=== PATIENT | female | born 1955 | race Caucasian/White ===

== ENCOUNTER 2020-12-10 16:54 | Emergency (ER) | payer OTHER ==
[~2020-12-10] VITALS: Ht 162.6 cm; Wt 104.5 kg
--- NOTE | 2020-12-10 17:21 | RAD ---
EXAM: Chest, single view. HISTORY: Chest pain. COMPARISON: None. FINDINGS: A frontal view of the chest is obtained. There is no infiltrate, pleural effusion or pneumo thorax. There is suspected infrahilar atelectasis. There is a prominent cardiac silhouette, likely ac centuated due to portable technique. There are median sternotomy changes and evidence of prior cardia c valve surgery. IMPRESSION: No acute pulmonary finding. Electronically signed by: Jaimie Egan MD (12/10/2020 5:19 PM) [id number]
[2020-12-10 17:27] LABS: BASO # 0.1 x10^3/uL (0.0-0.2); BASO % 1 % (0-3); EOS # 0.2 x10^3/uL (0.0-0.7); EOS % 2 % (0-3); HEMOGLOBIN 9.5 g/dL (12.0-15.5); LYMPH # 3.1 x10^3/uL (1.0-4.8); LYMPH % 30 % (24-48); MEAN CORPUSCULAR HEMOGLOBIN 32 pg (25-35); MEAN CORPUSCULAR HGB CONC 34 g/dL (31-37); MEAN CORPUSCULAR VOLUME 95 fL (79-100); MONO # 0.4 x10^3/uL (0.0-1.1); MONO % 4 % (0-9); NEUT # 6.7 x10^3/uL (1.8-7.7); NEUT % 65 % (31-73); PLATELET COUNT 181 x10^3/uL (140-400); RED BLOOD COUNT 2.94 x10^6/uL (3.50-5.40); RED CELL DISTRIBUTION WIDTH 14.2 % (11.5-14.5); WHITE BLOOD COUNT 10.4 x10^3/uL (4.0-11.0)
--- NOTE | 2020-12-10 17:27 | PHYS DOC ---
General Adult HPI: HPI: 65-year-old female past medical history of ASD w/emboli CVA (2 yrs ago s/o coumadin, now on pradaxa) with MV repair, HFrEF (35%, no AICD), HTN, COPD, HLD and obesity presents to the ED after patient was found down, lying on her back, by her daughter and her daughter's kitchen. Patient is here visiting family from [facility]. Patient states she ate cabbage salad and shortly thereafter had left upper quadrant abdominal pain that radiated to her right upper abdomen with associated loose watery diarrhea, denies any melena or hematochezia. Patient with no recall of what happened in the kitchen or how she landed. Also complains of neck pain in the ED. History of multiple unremarkable cardiac catheterizations. EMS with prenotification concern for anterior infarct reading on EKG machine. Patient's EKG reviewed by myself prior to ED arrival. Patient's glucose was 434 and EMS had given 250 cc of NS. Patient also reports she takes carvedilol and entresto. (JACINTA WU DO) Review of Systems: Review of Systems: Constitutional: Denies fever or chills. [] Eyes: Denies change in visual acuity. [] HENT: Denies nasal congestion or sore throat. [] Respiratory: Denies cough or shortness of breath. [] Cardiovascular: Denies chest pain or edema. [] GI: Denies nausea, vomiting, hematochezia, hematemesis : Denies dysuria or hematuria Musculoskeletal: Denies cva pain or joint pain. [] Integument: Denies rash or blistering lesions Neurologic: Denies headache, focal weakness or sensory changes. [] Endocrine: Denies polyuria or polydipsia. [] Lymphatic: Denies swollen glands. [] Psychiatric: Denies depression or anxiety. [] (JACINTA WU DO) Heart Score: C/O Chest Pain: No Risk Factors: Risk Factors: DM, Current or recent (<one month) smoker, HTN, HLP, family history of CAD, obesity. Risk Scores: Score 0 - 3: 2.5% MACE over next 6 weeks - Discharge Home Score 4 - 6: 20.3% MACE over next 6 weeks - Admit for Clinical Observation Score 7 - 10: 72.7% MACE over next 6 weeks - Early Invasive Strategies (JACINTA WU DO) C/O Chest Pain: N/A (MALATHI GARRISON DO) Physical Exam: PE: Constitutional: Pale, diaphoretic, appears uncomfortable, blood pressure difficult to obtain, manual taken by RN with BP of 60/30 HENT: Normocephalic, atraumatic, does report midline neck pain ,dry mucous membranes Eyes: PERRLA, EOMI, conjunctiva normal, no discharge. Neck: Normal range of motion, supple, Cardiovascular: S1/2 present, regular rhythm Lungs & Thorax: Speaking in full sentences, bilateral equal chest rise, no tachypnea or increased work of breathing Abdomen: soft, no rigidity or guarding but does have left upper quadrant and right upper quadrant tenderness, obese pannus, large formed BM in ed prior to CT imaging Skin: Warm, no erythema, no rash. [] Back: No midline step-offs, no CVA tenderness. [] Extremities: No tenderness, no cyanosis, no lower extremity edema, bruise over anterior patella with skin abrasion, full range of motion of left knee, no pain over left hip or left ankle, Neurologic: Alert and oriented X 3, normal motor function, normal sensory function, no focal deficits noted. [] Psychologic: Affect normal, judgement normal, mood normal. [] (JACINTA WU DO) PE: General: alert, acute distress Skin: ecchymosis diffuse varying age, abrasion left knee Head:: Normocephalic, atraumatic. Neck: Trachea midline. Eyes: EOMI, Normal conjunctiva, No drainage CARDIOVASCULAR: Regular rate and rhythm RESPIRATORY: No respiratory distress, lungs clear MUSCULOSKELETAL: Full range of motion of bilateral upper and lower extremities. GASTROINTESTINAL: Abdomen is tender to palpation LUQ NEUROLOGICAL: Alert and noted to person, place and time. No neurological deficits observed Psychiatric: Cooperative. Normal judgment (MALATHI GARRISON DO) EKG: EKG: EKG by EMS at 0247 shows sinus rhythm 81 bpm, left axis deviation, normal intervals, T wave inversion lead III, no ST elevations or ST depressions (EMS concerned for SAM II and aVF w/TWI III - I do not appreciate any convex/tombstone SAM) EKG in ED at 0457 shows sinus rhythm at 71 bpm, left axis deviation, T wave inversion lead III, normal intervals, no ST elevations or ST depressions (JACINTA WU DO) Radiology/Procedures: Radiology/Procedures: []IMAGING REPORT Signed PATIENT: KIN GREER ACCOUNT: [id number] : 1955 LOCATION: ER AGE: 65 SEX: F EXAM STATUS: PRE ER ORD. PHYSICIAN: JACINTA WU DO REASON: abd pain radiates to back PROCEDURE: PORTABLE CHEST 1V EXAM: Chest, single view. HISTORY: Chest pain. COMPARISON: None. FINDINGS: A frontal view of the chest is obtained. There is no infiltrate, pleural effusion or pneumothorax. There is suspected infrahilar atelectasis. There is a prominent cardiac silhouette, likely accentuated due to portable technique. There are median sternotomy changes and evidence of prior cardiac valve surgery. IMPRESSION: No acute pulmonary finding. Electronically signed by: Jaimie Brewer MD (12/10/2020 5:19 PM) [id number] DICTATED and SIGNED BY: JAIMIE BREWER MD DATE: 12/10/[id number] 0 IMAGING REPORT Signed PATIENT: KIN GREER ACCOUNT: [id number] : 1955 LOCATION: ER AGE: 65 SEX: F EXAM STATUS: PRE ER ORD. PHYSICIAN: JACINTA WU DO REASON: abd pain radiates to back PROCEDURE: PORTABLE CHEST 1V EXAM: Chest, single view. HISTORY: Chest pain. COMPARISON: None. FINDINGS: A frontal view of the chest is obtained. There is no infiltrate, pleural effusion or pneumothorax. There is suspected infrahilar atelectasis. There is a prominent cardiac silhouette, likely accentuated due to portable technique. There are median sternotomy changes and evidence of prior cardiac valve surgery. IMPRESSION: No acute pulmonary finding. Electronically signed by: Jaimie Brewer MD (12/10/2020 5:19 PM) [id number] DICTATED and SIGNED BY: JAIMIE BREWER MD DATE: 12/10/[id number] 0 (JACINTA WU DO) Impression: 1. No aortic dissection. 2. Large perisplenic hematoma and small volume hemoperitoneum. 3. Mild diffuse colonic wall thickening and possibly some wall thickening of small bowel in the left abdomen may be reactive or due to enteritis/colitis. 4. 2 pulmonary nodules in the right lower lobe measuring up to 3 mm. In a high risk patient, optional follow-up CT could be obtained in 12 months. 5. Other findings as described. (MALATHI GARRISON DO) Course & Med Decision Making: Course & Med Decision Making Pertinent Labs and Imaging studies reviewed. (See chart for details) Concern for abdominal, back and neck pain in the setting of hypotension and syncope. Patient started on NS 500 L bolus. Labs with renal insufficiency, no prior for baseline comparison pending CT angio of the chest/abdomen/pelvis pending to evaluate for trauma, cardiac process or aortic process including dissection or aneurysm. No obvious pericardial effusion on bedside POCUS - limited imaging 2/2 habitus and pt movement/distress. Suspect patient will require pressors. Due to shift change patient was signed out to oncoming physician Dr. Garrison for further medical management and evaluation-he is aware of critical nature of patient. Patient will likely need coags ordered (not ordered initially 2/2 nationwide shortage of blue tops that are being reserved for stroke patients). Critical Care: Authorized and Performed by: Jacinta Wu DO Total critical care time: approximately 60 minutes Due to a high probability of clinically significant, life threatening deterioration, the patient required my highest level of preparedness to intervene emergently and I personally spent this critical care time directly and personally managing the patient. This critical care time included obtaining a history; examining the patient; pulse oximetry; ventilator management if necessary; ordering and review of studies; arranging urgent treatment with development of a management plan; evaluation of patient's response to treatment; frequent reassessment; discussion with patient/family; and, discussions with other providers. This critical care time was performed to assess and manage the high probability of imminent, life-threatening deterioration that could result in multi-organ failure. It was exclusive of separately billable procedures and treating other patients and teaching time. Please see MDM section and the rest of the note for further information on patient assessment and treatment. (JACINTA WU DO) Course & Med Decision Making Assumed care at shift change-- 0600hrs Disposition pending labs and re-evaluation. Hx-- with upper abdominal discomfort x 2-3 days associated with diarrhea. FEATHERER daughter found patient laying on her back on the in the kitchen floor. Patient states she feel on to her belly and denies hitting her head. On exam patient with C/O LUQ abdominal pain. She has an abrasion over her left knee. Patients blood pressures in the 60's systolic Hb 9.5 Patient is on Pradaxa for ASD emboli --/> TIA (2001) Discussed CT abd/pel Discussed with with Radiologist 2. Large perisplenic hematoma and small volume hemoperitoneum. Massive transfusion protocal ordered--- 2 Unit PRBC, FFP Pradaxa Reversal ordered. - Received CT head/C-spine - negative Chest Xray - negative Knee Xray - negative Patient to be transferred Emergently to Trauma Center --- [facility] Accepted Dr Ethan Rangel Critical Care Time -- 35 minutes (MALATHI GARRISON DO) Ranjan Disclaimer: Ranjan Disclaimer: This electronic medical record was generated, in whole or in part, using a voice recognition dictation system. (JACINTA WU DO) Departure Departure Impression: Primary Impression: Syncope and collapse Additional Impressions: Abdominal pain Neck pain Back pain Diarrhea Spleen hematoma Disposition: 02 SHORT TERM [facility]OSPITAL ([facility]) Condition: CRITICAL JACINTA WU DO December 10, 2020 17:27 MALATHI GARRISON DO December 10, 2020 18:55
[2020-12-10 17:47] LABS: CALCIUM 8.1 mg/dL (8.5-10.1); CREATININE 1.9 mg/dL (0.6-1.0); GFR 26.4; POTASSIUM 4.5 mmol/L (3.5-5.1)
[2020-12-10 17:53] LABS: ALBUMIN 2.9 g/dL (3.4-5.0); DIRECT BILIRUBIN 0.1 mg/dL (0.0-0.2); MAGNESIUM 1.9 mg/dL (1.8-2.4); TOTAL BILIRUBIN 0.7 mg/dL (0.2-1.0); TOTAL PROTEIN 5.5 g/dL (6.4-8.2)
[2020-12-10] MEDS ORDERED: IOHEXOL 350 MG/ML 100 ML VIAL. IV ONE (18:00)
[2020-12-10] MEDS ORDERED: IV NORMAL SALINE 500ML BAG 500 ML IV ONE (18:00)
--- NOTE | 2020-12-10 18:08 | EKG ---
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
--- NOTE | 2020-12-10 18:18 | RAD ---
Exam: CT head and cervical spine INDICATION: Syncope, neck pain TECHNIQUE: Sequential axial images through the head and cervical spine were obtained without the admi nistration of IV contrast. Exposure: One or more of the following in the visualized dose reduction techniques were utilized for this examination: 1. Automated exposure control 2. Adjustment of the MA and/or KV according to patient size 3. Use of iterative of reconstructive technique Comparisons: None FINDINGS: Head: No focal parenchymal lesion or hemorrhage is identified. There is no midline shift or sulcal effaceme nt. Mild patchy evidence in the periventricular white matter. No acute vascular territory infarction is i dentified. Danielle-white distinction is preserved. The ventricular system is within normal limits without compression hydrocephalus. The basal cisterns are well maintained. The visualized portions of the paranasal sinuses and mastoid air cells are well-pneumatized. No acute fractures. Cervical spine: Straightening of the cervical spine which may positional. Vertebral body heights is limited. Fracture to the cervical spine is not identified. Multilevel spondylotic change in cervical spine with degenerative disc disease greatest at C4-C5, C5- C6 and C6-C7. Mild bilateral facet arthropathy is also noted in the cervical spine. Visualized paraspinal soft tissues are unremarkable. IMPRESSION: 1. Mild small vessel ischemic change, technically age indeterminate without recent prior imaging. 2. Negative CT C-spine for acute traumatic injury. Electronically signed by: Oriana Paz MD (12/10/2020 6:16 PM) [facility]
--- NOTE | 2020-12-10 18:43 | RAD ---
EXAM: CT ANGIOGRAM CHEST, ABDOMEN, AND PELVIS WITH CONTRAST INDICATION: Found laying down on back, syncope, left upper quadrant pain and abdominal pain. Evaluate for dissection. COMPARISON: None TECHNIQUE: Helical CT angiogram of the chest abdomen, and pelvis performed before and after the admi nistration of 90 mL Omnipaque 350 intravenous contrast. Coronal and sagittal 3D MIP reformations were obtained of the chest. One or more of the following individualized dose reduction techniques were utilized for this examinat ion: 1. Automated exposure control 2. Adjustment of the mA and/or kV according to patient size 3. Use of iterative reconstruction technique. FINDINGS: Aorta: There is no aortic dissection. No intramural hematoma. The aorta is normal in caliber. There a re mild calcifications in the arch and in the infrarenal abdominal aorta. Great vessel origins are pa tent. Abdominal branches are widely patent. Bilateral common and external iliac arteries are normal i n caliber and patent. 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 Right internal jessy c artery is normal. Heart/Systemic Vasculature: The heart is normal in size. No pericardial effusion. There is a prosthet ic mitral annulus valve. There are coronary artery calcifications. Cannot evaluate pulmonary arteries due to phase of contrast. Mediastinum and kim: No mediastinal or hilar lymphadenopathy. Lungs and pleura: There are 2 pulmonary nodules in the right lower lobe measuring up to 3 mm. Mild at electasis in the lungs. No pleural effusion or pneumothorax. Neck/Axilla/Body Wall: No axillary lymphadenopathy. 8 mm hypodensity in the left thyroid lobe.. Bones: There are median sternotomy wires. No acute fracture. ABDOMEN AND PELVIS: Liver: Liver is normal in size. There is a small amount of blood along the anterior margin of the nacho er. No definite liver lesion, evaluation limited by phase of contrast. Gallbladder/Biliary Tree: Gallbladder surgically absent or contracted. Bile ducts are unremarkable.. Pancreas: Normal. Spleen: There is a large perisplenic hematoma extending around the entire surface of the spleen, edgardo uring up to 3 cm in thickness. No arterial extravasation or discrete splenic laceration visualize. Adrenal Glands: Normal. Kidneys/Ureters/Bladder: The kidneys are normal in size and enhance symmetrically. There are multiple simple renal cysts measuring up to 3.3 cm on the left. No hydronephrosis. Ureters and bladder are no rmal. Reproductive Organs: Uterus is surgically absent. No adnexal mass. Stomach, small bowel, and colon: Small hiatal hernia. There is a gastric lap band. No small bowel obs truction. There is mild diffuse colonic wall thickening possibly some mild thickening of loops of bow el in the left midabdomen. Lymph Nodes: No lymphadenopathy. Peritoneum and retroperitoneum: Small hemoperitoneum in the pelvis and along the paracolic gutters. N o free air. Bones: No acute osseous abnormality. There is severe degenerative disc disease at L5-S1 and milder de generative disc disease at L2-L3 and L4-L5. IMPRESSION: 1. No aortic dissection. 2. Large perisplenic hematoma and small volume hemoperitoneum. 3. Mild diffuse colonic wall thickening and possibly some wall thickening of small bowel in the left abdomen may be reactive or due to enteritis/colitis. 4. 2 pulmonary nodules in the right lower lobe measuring up to 3 mm. In a high risk patient, optional follow-up CT could be obtained in 12 months. 5. Other findings as described. Critical results discussed by Dr. Valencia with the ER at 6:30 PM on 12/10/2020. Electronically signed by: Ana Valencia MD (12/10/2020 6:40 PM) [id number]
[2020-12-10] MEDS ORDERED: IV NORMAL SALINE 1000ML BAG 1,000 ML IV ONE (18:45)
--- NOTE | 2020-12-10 18:54 | RAD ---
XR KNEE _3 VIEWS_LT History: Reason: bruise to left knee / Spl. Instructions: / History: Technique: 3 views left knee Comparison: None. Findings: Normal alignment. No fracture. Mild to moderate knee degenerative changes most prominent within the p atellofemoral compartment. No significant knee joint effusion. Impression: 1. No acute osseous abnormality. 2. 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 Electronically signed by: Cameron Duncan DO (12/10/2020 6:52 PM) KIRSTEN
[2020-12-10] MEDS ORDERED: IDARUCIZUMAB 2.5 GM/50 ML IV ONE ×2 (19:00→19:05)
[2020-12-10] MEDS ORDERED: fentaNYL PF VIAL 100 MCG/2 ML VIAL IVP ONE (19:15)
[2020-12-10 19:22] VITALS: BP 63/37
== END 2020-12-10 19:50 | disposition short-term general hospital (02) ==
LOC: ER 16:54
DX: S36.029A Unspecified contusion of spleen, initial encounter (principal); S80.02XA Contusion of left knee, initial encounter; R10.12 Left upper quadrant pain; R55 Syncope and collapse; M54.2 Cervicalgia; M54.5 Low back pain; R19.7 Diarrhea, unspecified; J44.9 Chronic obstructive pulmonary disease, unspecified; I10 Essential (primary) hypertension; X58.XXXA Exposure to other specified factors, initial encounter; Y93.89 Activity, other specified; Y92.89 Other specified places as the place of occurrence of the external cause; Y99.8 Other external cause status
CPT/HCPCS: 36415; 36430; 70450; 71045; 71275; 72125; 73562; 74174; 80048; 80076; 82010; 83690; 83735; 83880; 84443; 84484; 85025; 86850; 86900; 86901; 86920; 86927; 93005; 96361; 96374; 96375; 96376; 99291; J3010; J3490; J7030; J7040; P9016; P9017; Q9967